=== PATIENT | female | born 1970 | race American Indian/Alaskan Native ===

== ENCOUNTER 2021-02-20 12:55 | Emergency (ER) | payer SELFPAY ==
--- NOTE | 2021-02-20 14:39 | Emergency Department Report ---
ED Medical Clearance HPI - General Chief complaint: Medical Clearance Stated complaint: COVID VACCINE SIDE AFFECTS Time Seen by Provider: 02/20/21 13:53 Source: patient Mode of arrival: Ambulatory - History of Present Illness Initial comments: 51-year-old -Citizen Of [place] female presents to the emergency room weak, achy, tingling sensation all over her body. Patient states she got her second dose of Covid vaccine Mederma yesterday. Patient did report increased thirst increased urination. She denies any past medical history currently takes no medications on a daily basis and has no known drug allergies. Patient states that she can take an ibuprofen and BC powders. Allergies/Adverse reactions: Allergies Allergy/AdvReac Type Severity Reaction Status Date / Time No Known Allergies Allergy Unverified 02/20/21 13:02 ED Review of Systems ROS: Stated complaint: COVID VACCINE SIDE AFFECTS Other details as noted in HPI Comment: All other systems reviewed and negative ED Past Medical Hx - Past Medical History Previous Medical History?: No - Surgical History Hx Appendectomy: Yes Additional Surgical History: hand surgery ED Physical Exam - General Limitations: No Limitations General appearance: alert, in no apparent distress - Head Head exam: Present: atraumatic, normocephalic - Eye Eye exam: Present: normal appearance - ENT ENT exam: Present: normal exam, normal external ear exam - Neck Neck exam: Present: normal inspection, full ROM - Respiratory Respiratory exam: Present: normal lung sounds bilaterally. Absent: accessory muscle use - Cardiovascular Cardiovascular Exam: Present: regular rate - Back Exam Back exam: Present: normal inspection. Absent: full ROM - Neurological Exam Neurological exam: Present: alert, oriented X3, normal gait - Expanded Neurological Exam Expanded Patient oriented to: Present: person, place, time Cranial nerves: EOM's Intact: Normal, Gag Reflex: Normal, Tongue Deviation: Normal, Nystagmus: Normal, Facial Sensation: Normal, Facial Palsy with Forehead Movement: Normal, Facial Palsy without Forehead Movement: Normal Cerebellar function: Romberg: Normal Upper motor neuron: Pronator Drift: Normal Sensory exam: Upper Extremity Light Touch: Normal, Upper Extremity Pin Prick: Normal, Upper Extremity Temperature: Normal, UE 2 Point Discrimination: Normal, Lower Extremity Light Touch: Normal, Lower Extremity Pin Prick: Normal, Lower Ex tremity Temperature: Normal, LE 2 Point Discrimination: Normal Motor strength exam: RUE: 4, LUE: 4, RLE: 4, LLE: 4 Best Eye Response (Cesar): (4) open spontaneously Best Motor Response (Cesar): (6) obeys commands Best Verbal Response (Scroggins): (5) oriented Cesar Total: 15 - Psychiatric Psychiatric exam: Present: normal affect, normal mood - Skin Skin exam: Present: warm, dry, intact, normal color. Absent: rash ED Course Vital Signs 02/20/21 13:03 Temperature 98.3 F Pulse Rate 86 Respiratory 18 Rate Blood Pressure 137/94 [Right] O2 Sat by Pulse 98 Oximetry ED Medical Decision Making - Lab Data Laboratory Tests 02/20/21 Unknown Urine Color Yellow Urine Turbidity Cloudy Urine pH 7.0 Ur Specific Carey 1.021 Urine Protein <15 mg/dl Urine Glucose (UA) Neg Urine Ketones Neg Urine Blood Neg Urine Nitrite Neg Urine Bilirubin Neg Urine Urobilinogen 2.0 Ur Leukocyte Esterase Neg Urine WBC (Auto) < 1.0 Urine RBC (Auto) 3.0 U Epithel Cells (Auto) 5.0 Urine Mucus Few - Medical Decision Making 51-year-old -Citizen Of [place] female presents to the emergency room weak, achy, tingling sensation all over her body. Patient states she got her second dose of Covid vaccine Mederma yesterday. Patient did report increased thirst increased urination. She denies any past medical history currently takes no medications on a daily basis and has no known drug allergies. Patient states that she can take an ibuprofen and BC powders. Urinalysis is negative for any infection or glucose spillage. Patient is able to ambulate to the bathroom without difficulties. Patient vital signs are stable. ED Disposition Clinical Impression: Viral syndrome Disposition: DC-01 TO HOME OR SELFCARE Is pt being admited?: No Does the pt Need Aspirin: No Condition: Stable Additional Instructions: Blood sugar is 102, urinalysis is negative for any concerns. This is most likely side effects of Covid vaccination. Increase your fluid intake ibuprofen for body aches. Forms: Work/School Release Form(ED)
[2021-02-20 14:52] LABS: Bilirubin,Urine NEG (Negative); Blood,Urine NEG (Negative); Color,Urine Yellow (Yellow); Mucus,Urine FEW /HPF; Protein,Urine <15 mg/dL mg/dL (Negative); WBC,Urine < 1.0 /HPF (0.0-6.0)
[2021-02-20 16:43] VITALS: BP 129/86
== END 2021-02-20 16:49 | disposition home or self-care (01) ==
LOC: ED 12:55
DX: B34.9 Viral infection, unspecified (principal); Z90.49 Acquired absence of other specified parts of digestive tract
CPT/HCPCS: 81001; 82962; 99283

== ENCOUNTER 2021-03-16 19:38 | Emergency (ER) | payer SELFPAY ==
[2021-03-16 20:26] VITALS: BP 119/74
--- NOTE | 2021-03-16 21:30 | Event Note ---
ED Screening Note Date of service: 03/16/21 Time: 21:28 ED Screening Note: 51-year-old female patient with history of sciatica presents emergency department with complaints of acute exacerbation of chronic back pain for 2 days. Patient states the pain is localized to her left lower back and radiates down the posterior aspect of her left lower extremity. Patient does not currently under the care of a primary care provider, explosive ordnance specialist, or physical therapist. She applied icy-hot to the affected area with limited relief. Today, patient has been unable to ambulate without assistance, prompting her boyfriend to bring her to the emergency department. General: Awake, appropriately interactive, no acute distress. Neck: Supple. Full range of motion intact. Cardiovascular: Normal peripheral perfusion. Pulmonary: No respiratory distress. Patient is speaking normally without use of accessory muscles. Skin: No apparent rashes or lesions. Neurological: No facial asymmetry. Speech is clear. Follows commands. Patient is alert and oriented. Musculoskeletal: Left lower paraspinal tenderness. Positive straight leg raise on the left. Patient is sitting in wheelchair, nonambulatory secondary to pain. Strength and sensation intact throughout. No saddle anesthesia. Psych: Cooperative. Appropriate mood and affect. Medication regimen deferred to additional ED providers following full history and comprehensive physical assessment. I have greeted and performed a focused rapid initial assessment of this patient. A comprehensive ED assessment and evaluation of the patient, analysis of all test results, and completion of the medical decision-making process will be conducted by additional ED providers. This initial assessment/diagnostic orders/clinical plan/treatment(s) is/are subject to change based on patients health status, clinical progression and re-assessment. Further treatment and workup at subsequent clinical provider's discretion. Patient/guardian urged not to elope from the ED as their condition may be serious if not clinically assessed and managed.
== END 2021-03-16 23:00 | disposition left against medical advice (07) ==
LOC: ED 19:38
DX: M54.9 Dorsalgia, unspecified (principal); Z53.21 Procedure and treatment not carried out due to patient leaving prior to being seen by health care provider

== ENCOUNTER 2022-04-15 08:00 | Emergency (ER) | payer OTHER ==
[2022-04-15 08:36] VITALS: BP 128/90
== END 2022-04-15 09:01 | disposition left against medical advice (07) ==
LOC: ED 08:00
DX: Z04.1 Encounter for examination and observation following transport accident (principal); Z53.21 Procedure and treatment not carried out due to patient leaving prior to being seen by health care provider; V87.7XXA Person injured in collision between other specified motor vehicles (traffic), initial encounter; Y93.89 Activity, other specified; Y92.488 Other paved roadways as the place of occurrence of the external cause; Y99.8 Other external cause status